=== PATIENT | female | born 2000 | race African-American/Black ===

== ENCOUNTER 2022-03-16 05:18 | Emergency (ER) | payer MEDICARE ==
[~2022-03-16] VITALS: Ht 154.9 cm; Wt 78.5 kg
[2022-03-16] MEDS ORDERED: IBUPROFEN 400MG TABLET PO ONE (07:00)
[2022-03-16] MEDS ORDERED: ACETAMINOPHEN 325MG TABLET PO ONE (07:00)
[2022-03-16 07:14] VITALS: BP 120/90
[2022-03-16] MEDS ORDERED: IBUP-2028 MT (08:37)
[2022-03-16] MEDS ORDERED: TOPUD PO (08:37)
== END 2022-03-16 08:43 | disposition home or self-care (01) ==
LOC: ER 05:18
DX: S60.112A Contusion of left thumb with damage to nail, initial encounter (principal); R51.9 Headache, unspecified; Y04.2XXA Assault by strike against or bumped into by another person, initial encounter; Y93.89 Activity, other specified; Y92.89 Other specified places as the place of occurrence of the external cause
CPT/HCPCS: 73140; 99283

== ENCOUNTER 2023-01-18 01:02 | Emergency (ER) | payer MEDICAID, MEDICARE ==
[~2023-01-18] VITALS: Ht 152.4 cm; Wt 70.0 kg
[~2023-01-18 01:02] MED LIST: IBUP-2028 MT; TOPUD PO
[2023-01-18] MEDS ORDERED: TETANUS, DIPHTHERIA, PERTUSSIS VAC/PF 0.5ML (>10YR OLD) IM ONE (01:30)
[2023-01-18] MEDS ORDERED: ACETAMINOPHEN 325MG TABLET PO ONE (01:30)
[2023-01-18] MEDS ORDERED: BACITRACIN ZINC OINT UDPKT TOP ONE (01:30)
[2023-01-18] MEDS ORDERED: LIDOCAINE HCL/PF 1% 10 MG/ML 5ML VIAL INFIL ONE ×3 (01:30→04:00)
[2023-01-18] MEDS ORDERED: DIAZEPAM 5 MG TABLET PO ONE (02:15)
[2023-01-18] MEDS: DIAZEPAM 5 MG TABLET PO NR ×3 (02:40→05:11)
[2023-01-18] MEDS ORDERED: NAPR500T7 MT (05:07)
[2023-01-18] MEDS ORDERED: CEPH500C2 MT (05:07)
[2023-01-18] MEDS ORDERED: BO1 TP (05:07)
[2023-01-18] MEDS ORDERED: ACET-2708 MT (05:07)
[2023-01-18 05:10] VITALS: BP 127/70
[2023-01-18] MEDS ORDERED: KETOROLAC 30MG/ML VIAL IM ONE (05:15)
== END 2023-01-18 05:40 | disposition home or self-care (01) ==
LOC: ER 01:02
DX: S61.412A Laceration without foreign body of left hand, initial encounter (principal); W19.XXXA Unspecified fall, initial encounter; Y93.39 Activity, other involving climbing, rappelling and jumping off; Y92.89 Other specified places as the place of occurrence of the external cause; Y99.8 Other external cause status
CPT/HCPCS: 12002; 81025; 90471; 90715; 96372; 99284; J1885; J3490; Z7610

== ENCOUNTER 2023-01-25 18:18 | Emergency (ER) | payer MEDICAID ==
[~2023-01-25] VITALS: Ht 152.4 cm; Wt 64.0 kg
[~2023-01-25 18:18] MED LIST changes: +ACET-2708 MT; +BO1 TP; +CEPH500C2 MT; +NAPR500T7 MT
[2023-01-25 18:46] VITALS: BP 117/54
[2023-01-25] MEDS ORDERED: NAPROXEN 500MG TABLET PO NR (19:19)
[2023-01-25] MEDS ORDERED: NAPR-1074 MT (19:24)
[2023-01-25] MEDS ORDERED: IBUP-2030 MT (20:41)
== END 2023-01-25 21:17 | disposition home or self-care (01) ==
LOC: ER 18:18
DX: S61.412D Laceration without foreign body of left hand, subsequent encounter (principal); M79.642 Pain in left hand; X58.XXXD Exposure to other specified factors, subsequent encounter
CPT/HCPCS: 99282

== ENCOUNTER 2023-02-17 20:42 | Emergency (ER) | payer MEDICAID ==
[~2023-02-17] VITALS: Ht 152.4 cm; Wt 64.0 kg
[~2023-02-17 20:42] MED LIST changes: +IBUP-2030 MT; +NAPR-1074 MT
== END 2023-02-17 23:30 | disposition home or self-care (01) ==
LOC: ER 20:42
DX: S61.412D Laceration without foreign body of left hand, subsequent encounter (principal); X58.XXXD Exposure to other specified factors, subsequent encounter
CPT/HCPCS: 99281